=== PATIENT | male | born 1960 | race Caucasian/White ===

== ENCOUNTER 2022-04-22 14:09 | Outpatient (CLI) | payer OTHER | END 2022-04-22 14:10 | disposition home or self-care (01) | LOC: BICCT 14:09 | DX: Z12.2 Encounter for screening for malignant neoplasm of respiratory organs (principal); Z87.891 Personal history of nicotine dependence | CPT/HCPCS: 71271 ==

== ENCOUNTER 2022-09-13 02:06 | Inpatient (IN) | payer OTHER ==
[2022-09-13] MEDS ORDERED: CEFAZOLIN 2 GM VIAL ONE ×2 (02:14→11:25)
[2022-09-13] MEDS ORDERED: Ondansetron PF 4 MG/2 ML Vial ONE ×3 (02:33→12:19)
[2022-09-13 02:43] LABS: #Basophils 0.1 thou/uL (0.0-0.2); #Eosinphils 0.2 thou/uL (0.0-0.7); #Lymphocytes 3.5 thou/uL (1.20-3.40); #Monocytes 1.3 thou/uL (0.11-0.59); #Neutrophils 11.3 thou/uL (1.40-6.50); %Basophils 0.7 % (0.0-1.0); %Eosinophils 1.4 % (0.0-10.0); %Lymphocytes 21.5 % (21.0-51.0); %Monocytes 7.9 % (0.0-10.0); %Neutrophils 68.4 % (42.0-75.0); Hemoglobin 15.8 g/dL (14.0-18.0); Mean Corpuscular HGB CONC 34.9 g/dL (32.0-36.0); Mean Corpuscular Hemoglobin 32.9 pg (27.0-31.0); Mean Corpuscular Volume 94.3 fL (78.0-98.0); Platelet Count 236 thou/uL (130-400); RBC Distribution Width 11.1 % (11.5-14.5); Red Blood Cell (RBC) Count 4.82 mill/uL (4.70-6.10); White Blood Cell (WBC) Count 16.5 thou/uL (4.8-10.8)
[2022-09-13 03:04] LABS: ALT (SGPT) 23 U/L (8-55); AST (SGOT) 24 U/L (5-34); Albumin 4.4 g/dL (3.5-5.0); Alkaline Phosphatase 83 U/L (40-110); Anion Gap 22 mmol/L (10-20); BUN (Urea Nitrogen) 11 mg/dL (8.4-25.7); Bilirubin, Total 1.6 mg/dL (0.2-1.2); Calc. Creatinine Clearance 0 mL/min (70-130); Calcium 8.8 mg/dL (7.8-10.44); Carbon Dioxide 16 mmol/L (22-29); Chloride 103 mmol/L (98-107); Estimated GFR 87; Globulin 2.4 g/dL (2.4-3.5); Glucose 241 mg/dL (70-105); Potassium 3.3 mmol/L (3.5-5.1); Protein, Total 6.8 g/dL (6.0-8.3); Sodium 138 mmol/L (136-145)
[2022-09-13 04:16] LABS: Acetaminophen Less than 10.0 mcg/mL (10.0-30.0); Alcohol 116 mg/dL (Less than 10); Salicylate Less than 8.0 mg/dL (15.0-30.0)
[2022-09-13] MEDS ORDERED: Ondansetron PF 4 MG/2 ML Vial IVP PRN (06:00)
[2022-09-13] MEDS ORDERED: Ondansetron ODT 4 MG TAB SL PRN (06:00)
[2022-09-13] MEDS ORDERED: Acetaminophen 325 MG TAB PO PRN (06:00)
[2022-09-13] MEDS ORDERED: Dextrose 50% Abboject 50 ML SYRINGE SLOW IVP PRN (06:24)
[2022-09-13] MEDS ORDERED: Dextrose 5% in Water 1,000 ML IV PRN (06:24)
[2022-09-13] MEDS ORDERED: Morphine 2 MG/ML VIAL SLOW IVP SCH (06:30)
[2022-09-13 06:54] VITALS: BMI 30.6
[2022-09-13] MEDS ORDERED: TETANUS, DIPHTHERIA TOX,ADULT (TDVAX) 0.5 ML VIAL IM ONE (08:00)
[2022-09-13] MEDS: Famotidine/PF 20 mg/2ml Vial SLOW IVP SCH ×2 (08:39→21:09)
[2022-09-13] MEDS ORDERED: CEFAZOLIN 2 GM in Sodium Chloride 0.9% 100 ML IVPB SCH (10:00)
[2022-09-13] MEDS ORDERED: CEFAZOLIN 1 GM in Sodium Chloride 0.9% 100 ML IVPB SCH (10:00)
[2022-09-13 10:57] LABS: PTT 28.8 sec (22.9-36.1); Prothrombin Time 13.4 sec (12.0-14.7)
[2022-09-13] MEDS ORDERED: EPINEPHrine 1 MG/ML AMP ONE ×2 (11:18→13:11)
[2022-09-13] MEDS ORDERED: Neomycin-Polymyxin 1 ML AMP ONE (11:18)
[2022-09-13] MEDS ORDERED: Bacitracin Zinc Ointment 30 gm TUBE ONE (11:18)
[2022-09-13] MEDS ORDERED: Chlorhexidine Gluconate 15 ML UDCUP SSP ONE (11:18)
[2022-09-13] MEDS ORDERED: Lidocaine 1% (PF) 30 ML VIAL ONE (11:19)
[2022-09-13] MEDS ORDERED: fentaNYL PF 100 MCG/2 ML SYRINGE ONE ×2 (11:22→12:25)
[2022-09-13] MEDS ORDERED: Iopamidol-370 76% 500 ML 1 ML ONE ×2 (11:24→13:11)
[2022-09-13] MEDS ORDERED: Sodium Chloride 0.9% 100 ML ONE (11:25)
[2022-09-13] MEDS ORDERED: Dexamethasone 20 MG/5 ML VIAL ONE (12:19)
[2022-09-13] MEDS ORDERED: PHENYLEPHRINE-NS 100 MCG/ML 10 ML SYRINGE ONE (12:19)
[2022-09-13] MEDS ORDERED: PROPOFOL 200 MG/20 ML VIAL ONE (12:19)
[2022-09-13] MEDS ORDERED: Rocuronium Bromide 10 MG/ML (10ML VIAL) ONE (12:19)
[2022-09-13] MEDS ORDERED: ePHEDrine 50 MG/ML VIAL ONE (12:19)
[2022-09-13 12:52] LABS: SARS-CoV-2 NAA Rapid Test Not Detected (NotDetected)
[2022-09-13] MEDS ORDERED: MINERAL OIL/WHITE PETROLATUM 3.5 GM TUBE ONE (12:57)
[2022-09-13] MEDS ORDERED: CEFAZOLIN 1 GM VIAL SLOW IVP SCH (14:00)
[2022-09-13] MEDS ORDERED: HYDROmorphone 2 MG/ML VIAL SLOW IVP PRN (15:46)
[2022-09-13] MEDS ORDERED: Meperidine HCl/PF 25 MG/ML VIAL SLOW IVP PRN (15:46)
[2022-09-13] MEDS ORDERED: Ondansetron HCl/PF 4 MG/2 ML Vial IVP PRN (15:46)
[2022-09-13] MEDS ORDERED: Promethazine HCl 25 MG/ML VIAL IVPB PRN (15:46)
[2022-09-13] MEDS ORDERED: Promethazine HCl 25 MG/ML VIAL IM PRN (15:46)
[2022-09-13] MEDS ORDERED: Fentanyl 100 MCG/2 ML VIAL ONE (16:01)
[2022-09-13] MEDS ORDERED: Labetalol HCl 100 MG/20 ML VIAL ONE (16:23)
[2022-09-13] MEDS ORDERED: Sodium Chloride 0.9% 1,000 ML IV SCH (16:45)
[2022-09-13] MEDS ORDERED: Sodium Bicarb 50 MEQ/50 ML VIAL IVP SCH (17:00)
[2022-09-13] MEDS: Thiamine 100 MG TAB PO SCH (18:47)
[2022-09-13] MEDS: Folic Acid 1 MG TAB PO SCH (18:47)
[2022-09-13] MEDS: Oxazepam 10 MG CAP PO SCH ×2 (18:47→21:09)
[2022-09-13] MEDS ORDERED: traMADol HCl 50 MG TAB PO PRN (20:03)
[2022-09-13] MEDS ORDERED: Acetaminophen 500 MG TAB PO SCH (20:30)
[2022-09-13] MEDS: Bacitracin 1 PK TOP SCH (21:08)
[2022-09-13] MEDS: Chlorhexidine Gluconate 15 ML UDCUP SSP SCH (21:09)
[2022-09-13] MEDS: hydrALAZINE 20 MG/ML VIAL SLOW IVP PRN (21:09)
[2022-09-13] MEDS: Atorvastatin Calcium 40 MG TAB PO SCH (21:09)
[2022-09-13] MEDS: CEFAZOLIN 2 GM in Sodium Chloride 0.9% 100 ML IVPB SCH (21:11)
[2022-09-13] MEDS: Ondansetron PF 4 MG/2 ML Vial IVP PRN (21:52)
[2022-09-13] MEDS: Scopolamine 1.5 mg/72 hour Patch TD SCH (21:52)
[2022-09-13] MEDS: HumaLOG 300 UNITS/3 ML VIAL SC PRN (21:52)
[2022-09-13] MEDS: Acetaminophen W/ Codeine 5 ML UDCUP PO SCH (21:53)
[2022-09-13] MEDS: Morphine 2 MG/ML VIAL SLOW IVP PRN (22:45)
[2022-09-13] MEDS ORDERED: traMADol HCl 50 MG TAB PO SCH (23:59)
[2022-09-14] MEDS: HumaLOG 300 UNITS/3 ML VIAL SC PRN ×4 (01:27→19:46)
[2022-09-14] MEDS: Acetaminophen W/ Codeine 5 ML UDCUP PO SCH ×2 (01:30→05:34)
[2022-09-14] MEDS: Labetalol HCl 100 MG/20 ML VIAL SLOW IVP PRN ×2 (03:48→21:31)
[2022-09-14] MEDS: Morphine 2 MG/ML VIAL SLOW IVP PRN (03:49)
[2022-09-14] MEDS: CEFAZOLIN 2 GM in Sodium Chloride 0.9% 100 ML IVPB SCH (03:49)
[2022-09-14] MEDS: Oxazepam 10 MG CAP PO SCH ×3 (05:35→21:12)
[2022-09-14 05:57] LABS: Bacteria/HPF None Seen HPF (None Seen); Bilirubin Negative (Negative); Blood, Urine Negative (Negative); Clarity Clear (Clear); Glucose, Urine (Dipstick) Greater than 1000 mg/dL (Negative); Ketone, Urine 40 mg/dL (Negative); Leukocyte Negative Leu/uL (Negative); Nitrite Negative (Negative); Protein, Urine (Dipstick) 10 mg/dL (Neg-Trace); RBC/HPF None Seen HPF (0-3); Specific Gravity, Urine 1.036 (1.002-1.036); Squamous Epithelial 0-3 HPF (0-3); Urobilinogen Normal mg/dL (Less than 2); WBC/HPF None Seen HPF (0-3)
[2022-09-14 06:13] LABS: Urine Culture Reflex No No
[2022-09-14 06:51] LABS: Anion Gap 15 mmol/L (10-20); BUN (Urea Nitrogen) 15 mg/dL (8.4-25.7); Calc. Creatinine Clearance 107 mL/min (70-130); Calcium 8.6 mg/dL (7.8-10.44); Carbon Dioxide 24 mmol/L (22-29); Chloride 105 mmol/L (98-107); Estimated GFR 98; Glucose 203 mg/dL (70-105); Potassium 3.7 mmol/L (3.5-5.1); Sodium 140 mmol/L (136-145)
[2022-09-14 07:01] LABS: Band 23 % (5-11); Hemoglobin 13.6 g/dL (14.0-18.0); Lymphocytes 2 % (21-51); MDiff Complete? YES; Mean Corpuscular HGB CONC 35.7 g/dL (32.0-36.0); Mean Corpuscular Volume 95.1 fL (78.0-98.0); Mean Platelet Volume 7.9 fL (7.4-10.4); Monocytes 9 % (0-10); Neutrophil 65 % (42-75); Phosphorus 1.9 mg/dL (2.3-4.7); Platelet Count 204 thou/uL (130-400); Platelet Morphology Comment Appears Adequate; RBC Distribution Width 11.3 % (11.5-14.5); RBC Morphology Normal; Reactive Lymphocytes 1 % (0-10); Red Blood Cell (RBC) Count 3.99 mill/uL (4.70-6.10); White Blood Cell (WBC) Count 20.8 thou/uL (4.8-10.8)
[2022-09-14] MEDS ORDERED: Potassium Phosphate 30 MMOL in Sodium Chloride 0.9% 250 ML 250 ML IVPB SCH (08:00)
[2022-09-14] MEDS: Morphine 4 MG/ML VIAL SLOW IVP PRN ×3 (10:28→18:31)
[2022-09-14] MEDS: Thiamine 100 MG TAB PO SCH (10:29)
[2022-09-14] MEDS: Folic Acid 1 MG TAB PO SCH (10:29)
[2022-09-14] MEDS: Bacitracin 1 PK TOP SCH ×3 (10:30→21:12)
[2022-09-14] MEDS: Chlorhexidine Gluconate 15 ML UDCUP SSP SCH ×2 (10:30→21:12)
[2022-09-14] MEDS: Famotidine/PF 20 mg/2ml Vial SLOW IVP SCH ×2 (10:30→21:12)
[2022-09-14] MEDS ORDERED: traMADol HCl 50 MG TAB PO PRN (12:24)
[2022-09-14] MEDS: Cyclobenzaprine 10 MG TAB PO PRN (12:32)
[2022-09-14] MEDS: Acetaminophen 325 MG/10.15 ML UDCUP PO SCH ×2 (15:03→21:13)
[2022-09-14] MEDS ORDERED: traMADol HCl 50 MG TAB PO SCH (18:00)
[2022-09-14] MEDS: Gabapentin 300 MG CAP PO SCH (21:13)
[2022-09-14] MEDS: Atorvastatin Calcium 40 MG TAB PO SCH (21:13)
[2022-09-15] MEDS: Labetalol HCl 100 MG/20 ML VIAL SLOW IVP PRN ×2 (01:54→21:19)
[2022-09-15] MEDS: Acetaminophen 325 MG/10.15 ML UDCUP PO SCH ×4 (01:54→20:52)
[2022-09-15] MEDS: Pentazocine HCl/Naloxone HCl 50/0.5 MG TAB PO PRN ×4 (02:31→23:17)
[2022-09-15] MEDS: Oxazepam 10 MG CAP PO SCH ×3 (05:38→20:51)
[2022-09-15] MEDS: HumaLOG 300 UNITS/3 ML VIAL SC PRN ×4 (05:39→21:32)
[2022-09-15 06:01] LABS: #Lymphocytes 2.1 thou/uL (1.20-3.40); #Monocytes 2.1 thou/uL (0.11-0.59); #Neutrophils 11.4 thou/uL (1.40-6.50); %Basophils 0.3 % (0.0-1.0); %Eosinophils 0.2 % (0.0-10.0); %Lymphocytes 13.3 % (21.0-51.0); %Monocytes 13.3 % (0.0-10.0); %Neutrophils 72.9 % (42.0-75.0); Hemoglobin 12.2 g/dL (14.0-18.0); Mean Corpuscular HGB CONC 33.7 g/dL (32.0-36.0); Mean Corpuscular Hemoglobin 32.2 pg (27.0-31.0); Mean Corpuscular Volume 95.6 fL (78.0-98.0); Platelet Count 184 thou/uL (130-400); RBC Distribution Width 11.3 % (11.5-14.5); Red Blood Cell (RBC) Count 3.79 mill/uL (4.70-6.10); White Blood Cell (WBC) Count 15.6 thou/uL (4.8-10.8)
[2022-09-15 06:26] LABS: Anion Gap 13 mmol/L (10-20); BUN (Urea Nitrogen) 13 mg/dL (8.4-25.7); Calc. Creatinine Clearance 129 mL/min (70-130); Calcium 8.4 mg/dL (7.8-10.44); Carbon Dioxide 26 mmol/L (22-29); Chloride 102 mmol/L (98-107); Estimated GFR 104; Glucose 207 mg/dL (70-105); Magnesium 2.1 mg/dL (1.6-2.6); Phosphorus 2.4 mg/dL (2.3-4.7); Potassium 4.2 mmol/L (3.5-5.1); Sodium 137 mmol/L (136-145)
[2022-09-15] MEDS: Gabapentin 300 MG CAP PO SCH ×3 (08:41→20:51)
[2022-09-15] MEDS: Thiamine 100 MG TAB PO SCH (08:41)
[2022-09-15] MEDS: Famotidine/PF 20 mg/2ml Vial SLOW IVP SCH ×2 (08:41→20:52)
[2022-09-15] MEDS: Bacitracin 1 PK TOP SCH ×3 (08:41→20:54)
[2022-09-15] MEDS: Folic Acid 1 MG TAB PO SCH (08:42)
[2022-09-15] MEDS: Chlorhexidine Gluconate 15 ML UDCUP SSP SCH ×2 (10:07→20:52)
[2022-09-15] MEDS: Atorvastatin Calcium 40 MG TAB PO SCH (20:52)
[2022-09-15] MEDS: Cyclobenzaprine 10 MG TAB PO PRN (22:04)
[2022-09-16] MEDS: Labetalol HCl 100 MG/20 ML VIAL SLOW IVP PRN ×4 (00:06→17:41)
[2022-09-16] MEDS: Acetaminophen 325 MG/10.15 ML UDCUP PO SCH ×4 (03:37→21:09)
[2022-09-16 05:21] LABS: #Eosinphils 0.2 thou/uL (0.0-0.7); #Lymphocytes 2.2 thou/uL (1.20-3.40); #Monocytes 1.5 thou/uL (0.11-0.59); #Neutrophils 7.4 thou/uL (1.40-6.50); %Basophils 0.4 % (0.0-1.0); %Eosinophils 1.5 % (0.0-10.0); %Lymphocytes 19.7 % (21.0-51.0); %Monocytes 13.1 % (0.0-10.0); %Neutrophils 65.3 % (42.0-75.0); Hemoglobin 12.6 g/dL (14.0-18.0); Mean Corpuscular HGB CONC 33.2 g/dL (32.0-36.0); Mean Corpuscular Hemoglobin 32.2 pg (27.0-31.0); Mean Corpuscular Volume 97.2 fL (78.0-98.0); Mean Platelet Volume 7.7 fL (7.4-10.4); Platelet Count 208 thou/uL (130-400); RBC Distribution Width 11.1 % (11.5-14.5); Red Blood Cell (RBC) Count 3.92 mill/uL (4.70-6.10); White Blood Cell (WBC) Count 11.3 thou/uL (4.8-10.8)
[2022-09-16] MEDS: Oxazepam 10 MG CAP PO SCH ×3 (05:39→21:10)
[2022-09-16] MEDS: Pentazocine HCl/Naloxone HCl 50/0.5 MG TAB PO PRN (06:43)
[2022-09-16] MEDS: HumaLOG 300 UNITS/3 ML VIAL SC PRN ×3 (06:44→17:40)
[2022-09-16] MEDS: Gabapentin 300 MG CAP PO SCH ×3 (09:06→20:51)
[2022-09-16] MEDS: Folic Acid 1 MG TAB PO SCH (09:06)
[2022-09-16] MEDS: Thiamine 100 MG TAB PO SCH (09:07)
[2022-09-16] MEDS: Chlorhexidine Gluconate 15 ML UDCUP SSP SCH ×2 (09:08→20:50)
[2022-09-16] MEDS: Bacitracin 1 PK TOP SCH ×3 (09:08→20:50)
[2022-09-16] MEDS: traMADol HCl 50 MG TAB PO SCH ×3 (11:48→23:58)
[2022-09-16] MEDS: Scopolamine 1.5 mg/72 hour Patch TD SCH (20:50)
[2022-09-16] MEDS: Atorvastatin Calcium 40 MG TAB PO SCH (20:51)
[2022-09-16] MEDS: Cyclobenzaprine 10 MG TAB PO PRN (21:10)
[2022-09-17] MEDS: Acetaminophen 325 MG/10.15 ML UDCUP PO SCH ×4 (03:26→20:27)
[2022-09-17] MEDS: hydrALAZINE 20 MG/ML VIAL SLOW IVP PRN ×3 (03:36→16:17)
[2022-09-17] MEDS: Labetalol HCl 100 MG/20 ML VIAL SLOW IVP PRN (04:10)
[2022-09-17] MEDS: traMADol HCl 50 MG TAB PO SCH ×4 (05:17→23:37)
[2022-09-17] MEDS: Oxazepam 10 MG CAP PO SCH ×4 (05:18→22:27)
[2022-09-17] MEDS: Cyclobenzaprine 10 MG TAB PO PRN ×2 (05:20→15:19)
[2022-09-17] MEDS: HumaLOG 300 UNITS/3 ML VIAL SC PRN ×4 (05:27→22:22)
[2022-09-17] MEDS: Morphine 4 MG/ML VIAL SLOW IVP PRN (06:41)
[2022-09-17] MEDS: Bacitracin 1 PK TOP SCH ×3 (08:27→20:27)
[2022-09-17] MEDS: Folic Acid 1 MG TAB PO SCH (08:27)
[2022-09-17] MEDS: Thiamine 100 MG TAB PO SCH (08:27)
[2022-09-17] MEDS: Gabapentin 300 MG CAP PO SCH ×3 (08:27→20:27)
[2022-09-17] MEDS: Chlorhexidine Gluconate 15 ML UDCUP SSP SCH ×2 (08:28→20:27)
[2022-09-17] MEDS: Amlodipine 10 MG TAB PO SCH (09:12)
[2022-09-17] MEDS: Ondansetron PF 4 MG/2 ML Vial IVP PRN (20:02)
[2022-09-17] MEDS: Atorvastatin Calcium 40 MG TAB PO SCH (20:27)
[2022-09-17 20:45] LABS: Anion Gap 15 mmol/L (10-20); BUN (Urea Nitrogen) 9 mg/dL (8.4-25.7); Calc. Creatinine Clearance 137 mL/min (70-130); Calcium 9.2 mg/dL (7.8-10.44); Carbon Dioxide 24 mmol/L (22-29); Chloride 100 mmol/L (98-107); Estimated GFR 105; Glucose 180 mg/dL (70-105); Magnesium 1.9 mg/dL (1.6-2.6); Phosphorus 2.8 mg/dL (2.3-4.7); Potassium 3.3 mmol/L (3.5-5.1); Sodium 136 mmol/L (136-145)
[2022-09-17 20:48] LABS: Troponin I 0.025 ng/mL (< 0.028)
[2022-09-17] MEDS ORDERED: Magnesium 2 GM/50 ML(in water) 2 GM in Premix Bag 1 BAG IVPB SCH (21:00)
[2022-09-17] MEDS: Potassium Chloride 20 MEQ TAB PO SCH ×2 (21:53→23:02)
[2022-09-17] MEDS: Carvedilol 6.25 MG TAB PO SCH ×2 (21:54→22:27)
[2022-09-17] MEDS: Insulin Glargine 30 UNITS/0.3 ML VIAL SC SCH (21:58)
[2022-09-17] MEDS ORDERED: Calcium Carbonate 500 MG ChewTAB PO PRN (22:13)
[2022-09-17 23:13] LABS: #Basophils 0.1 thou/uL (0.0-0.2); #Eosinphils 0.3 thou/uL (0.0-0.7); #Lymphocytes 1.4 thou/uL (1.20-3.40); #Monocytes 1.6 thou/uL (0.11-0.59); %Basophils 0.6 % (0.0-1.0); %Eosinophils 1.9 % (0.0-10.0); %Lymphocytes 10.5 % (21.0-51.0); %Monocytes 12.3 % (0.0-10.0); %Neutrophils 74.7 % (42.0-75.0); Hemoglobin 13.9 g/dL (14.0-18.0); Mean Corpuscular HGB CONC 34.1 g/dL (32.0-36.0); Mean Corpuscular Hemoglobin 32.8 pg (27.0-31.0); Mean Corpuscular Volume 96.1 fL (78.0-98.0); Platelet Count 287 thou/uL (130-400); RBC Distribution Width 11.4 % (11.5-14.5); Red Blood Cell (RBC) Count 4.23 mill/uL (4.70-6.10); White Blood Cell (WBC) Count 13.4 thou/uL (4.8-10.8)
[2022-09-17] MEDS ORDERED: Potassium Chloride 20 MEQ TAB PO SCH (23:15)
[2022-09-18] MEDS: Potassium Chloride 20 MEQ TAB PO SCH (01:54)
[2022-09-18] MEDS: Acetaminophen 325 MG/10.15 ML UDCUP PO SCH ×4 (02:51→21:32)
[2022-09-18 05:35] LABS: Anion Gap 13 mmol/L (10-20); BUN (Urea Nitrogen) 13 mg/dL (8.4-25.7); Calc. Creatinine Clearance 124 mL/min (70-130); Calcium 9.3 mg/dL (7.8-10.44); Carbon Dioxide 26 mmol/L (22-29); Chloride 100 mmol/L (98-107); Estimated GFR 102; Glucose 198 mg/dL (70-105); Magnesium 2.1 mg/dL (1.6-2.6); Phosphorus 4.5 mg/dL (2.3-4.7); Sodium 135 mmol/L (136-145)
[2022-09-18 05:52] LABS: CKMB 1.9 ng/mL (0-6.6)
[2022-09-18] MEDS: traMADol HCl 50 MG TAB PO SCH ×4 (06:21→23:28)
[2022-09-18] MEDS: HumaLOG 300 UNITS/3 ML VIAL SC PRN ×3 (06:21→17:31)
[2022-09-18] MEDS: Oxazepam 10 MG CAP PO SCH ×3 (06:21→21:32)
[2022-09-18] MEDS: Gabapentin 300 MG CAP PO SCH ×3 (08:56→21:32)
[2022-09-18] MEDS: Chlorhexidine Gluconate 15 ML UDCUP SSP SCH ×2 (08:56→21:33)
[2022-09-18] MEDS: Carvedilol 6.25 MG TAB PO SCH ×2 (08:57→17:31)
[2022-09-18] MEDS: Thiamine 100 MG TAB PO SCH (08:57)
[2022-09-18] MEDS: Bacitracin 1 PK TOP SCH ×3 (08:57→21:31)
[2022-09-18] MEDS: Amlodipine 10 MG TAB PO SCH (08:57)
[2022-09-18] MEDS: Senokot S 8.6-50 MG TAB PO SCH ×2 (08:57→21:31)
[2022-09-18] MEDS: Folic Acid 1 MG TAB PO SCH (08:57)
[2022-09-18] MEDS: Atorvastatin Calcium 40 MG TAB PO SCH (21:31)
[2022-09-18] MEDS: Insulin Glargine 30 UNITS/0.3 ML VIAL SC SCH (21:32)
[2022-09-19] MEDS: Acetaminophen 325 MG/10.15 ML UDCUP PO SCH ×4 (02:52→21:29)
[2022-09-19 04:24] LABS: #Eosinphils 0.4 thou/uL (0.0-0.7); #Monocytes 1.7 thou/uL (0.11-0.59); #Neutrophils 10.1 thou/uL (1.40-6.50); %Basophils 0.3 % (0.0-1.0); %Eosinophils 3.1 % (0.0-10.0); %Lymphocytes 14.3 % (21.0-51.0); %Monocytes 11.7 % (0.0-10.0); %Neutrophils 70.7 % (42.0-75.0); Hemoglobin 12.6 g/dL (14.0-18.0); Mean Corpuscular HGB CONC 33.9 g/dL (32.0-36.0); Mean Corpuscular Hemoglobin 32.3 pg (27.0-31.0); Mean Corpuscular Volume 95.4 fL (78.0-98.0); Mean Platelet Volume 7.3 fL (7.4-10.4); Platelet Count 279 thou/uL (130-400); RBC Distribution Width 11.7 % (11.5-14.5); White Blood Cell (WBC) Count 14.2 thou/uL (4.8-10.8)
[2022-09-19 06:14] LABS: Anion Gap 10 mmol/L (10-20); BUN (Urea Nitrogen) 11 mg/dL (8.4-25.7); Calc. Creatinine Clearance 131 mL/min (70-130); Carbon Dioxide 29 mmol/L (22-29); Chloride 100 mmol/L (98-107); Estimated GFR 104; Glucose 216 mg/dL (70-105); Magnesium 1.7 mg/dL (1.6-2.6); Phosphorus 2.6 mg/dL (2.3-4.7); Potassium 4.2 mmol/L (3.5-5.1); Sodium 135 mmol/L (136-145)
[2022-09-19] MEDS: Oxazepam 10 MG CAP PO SCH ×3 (06:18→21:30)
[2022-09-19] MEDS: traMADol HCl 50 MG TAB PO SCH ×3 (06:19→17:44)
[2022-09-19] MEDS: HumaLOG 300 UNITS/3 ML VIAL SC PRN (06:19)
[2022-09-19] MEDS: Gabapentin 300 MG CAP PO SCH ×3 (09:45→21:29)
[2022-09-19] MEDS: Folic Acid 1 MG TAB PO SCH (09:46)
[2022-09-19] MEDS: Senokot S 8.6-50 MG TAB PO SCH ×2 (09:46→22:32)
[2022-09-19] MEDS: Thiamine 100 MG TAB PO SCH (09:46)
[2022-09-19] MEDS: Carvedilol 6.25 MG TAB PO SCH ×2 (09:46→17:44)
[2022-09-19] MEDS: Multivitamin W/ Minerals 1 TAB PO SCH (09:46)
[2022-09-19] MEDS: Bacitracin 1 PK TOP SCH ×3 (09:46→21:27)
[2022-09-19] MEDS: Amlodipine 10 MG TAB PO SCH (09:46)
[2022-09-19] MEDS: Chlorhexidine Gluconate 15 ML UDCUP SSP SCH ×2 (09:47→21:29)
[2022-09-19] MEDS: Scopolamine 1.5 mg/72 hour Patch TD SCH (21:27)
[2022-09-19] MEDS: Atorvastatin Calcium 40 MG TAB PO SCH (21:27)
[2022-09-19] MEDS: Insulin Glargine 30 UNITS/0.3 ML VIAL SC SCH (21:29)
[2022-09-19] MEDS: hydrALAZINE 20 MG/ML VIAL SLOW IVP PRN (21:40)
[2022-09-20] MEDS: traMADol HCl 50 MG TAB PO SCH ×5 (00:36→23:49)
[2022-09-20] MEDS: Acetaminophen 325 MG/10.15 ML UDCUP PO SCH ×4 (02:36→20:37)
[2022-09-20] MEDS: Oxazepam 10 MG CAP PO SCH ×3 (06:19→20:38)
[2022-09-20] MEDS: HumaLOG 300 UNITS/3 ML VIAL SC PRN ×3 (06:19→17:24)
[2022-09-20] MEDS: Senokot S 8.6-50 MG TAB PO SCH ×2 (08:38→20:38)
[2022-09-20] MEDS: Thiamine 100 MG TAB PO SCH (08:38)
[2022-09-20] MEDS: Folic Acid 1 MG TAB PO SCH (08:38)
[2022-09-20] MEDS: Gabapentin 300 MG CAP PO SCH ×3 (08:38→20:38)
[2022-09-20] MEDS: Carvedilol 6.25 MG TAB PO SCH ×2 (08:38→17:24)
[2022-09-20] MEDS: Amlodipine 10 MG TAB PO SCH (08:38)
[2022-09-20] MEDS: Multivitamin W/ Minerals 1 TAB PO SCH (08:39)
[2022-09-20] MEDS: Bacitracin 1 PK TOP SCH ×3 (08:41→20:37)
[2022-09-20] MEDS: Chlorhexidine Gluconate 15 ML UDCUP SSP SCH ×2 (08:41→20:38)
[2022-09-20] MEDS: Empagliflozin 25 MG TAB PO SCH (09:25)
[2022-09-20] MEDS ORDERED: NPH, Human Insulin Isophane 300 UNIT/3 ML VIAL SC SCH (11:45)
[2022-09-20] MEDS: Atorvastatin Calcium 40 MG TAB PO SCH (20:37)
[2022-09-20] MEDS: traMADol HCl 50 MG TAB PO PRN (20:38)
[2022-09-20] MEDS: Insulin Glargine 30 UNITS/0.3 ML VIAL SC SCH (20:41)
[2022-09-21] MEDS: Acetaminophen 325 MG/10.15 ML UDCUP PO SCH ×3 (03:20→17:46)
[2022-09-21] MEDS: Oxazepam 10 MG CAP PO SCH ×3 (05:21→15:16)
[2022-09-21] MEDS: traMADol HCl 50 MG TAB PO SCH ×4 (05:21→17:16)
[2022-09-21 05:40] LABS: Bacteria/HPF None Seen HPF (None Seen); Bilirubin Negative (Negative); Blood, Urine Negative (Negative); Clarity Clear (Clear); Glucose, Urine (Dipstick) 50 mg/dL (Negative); Ketone, Urine Negative (Negative); Leukocyte Negative Leu/uL (Negative); Nitrite Negative (Negative); Protein, Urine (Dipstick) Negative (Neg-Trace); RBC/HPF 0-3 HPF (0-3); Squamous Epithelial None Seen HPF (0-3); Urobilinogen Normal mg/dL (Less than 2); WBC/HPF 0-3 HPF (0-3); pH, Urine 6.5 (5.0-9.0)
[2022-09-21 05:41] LABS: Urine Culture Reflex No No
[2022-09-21] MEDS: HumaLOG 300 UNITS/3 ML VIAL SC PRN ×2 (05:52→11:24)
[2022-09-21] MEDS: Cyclobenzaprine 10 MG TAB PO PRN (05:55)
[2022-09-21] MEDS: Carvedilol 6.25 MG TAB PO SCH ×2 (09:34→17:16)
[2022-09-21] MEDS: Chlorhexidine Gluconate 15 ML UDCUP SSP SCH ×2 (09:35→20:59)
[2022-09-21] MEDS: Senokot S 8.6-50 MG TAB PO SCH ×2 (09:35→21:01)
[2022-09-21] MEDS: Folic Acid 1 MG TAB PO SCH (09:35)
[2022-09-21] MEDS: Bacitracin 1 PK TOP SCH ×3 (09:35→21:00)
[2022-09-21] MEDS: Empagliflozin 25 MG TAB PO SCH (09:35)
[2022-09-21] MEDS: Multivitamin W/ Minerals 1 TAB PO SCH (09:35)
[2022-09-21] MEDS ORDERED: Meclizine HCl 12.5 MG TAB PO PRN (09:35)
[2022-09-21] MEDS: Gabapentin 300 MG CAP PO SCH ×3 (09:35→21:00)
[2022-09-21] MEDS: Insulin Glargine 30 UNITS/0.3 ML VIAL SC SCH ×2 (09:36→21:02)
[2022-09-21] MEDS: Thiamine 100 MG TAB PO SCH (09:36)
[2022-09-21] MEDS: Atorvastatin Calcium 40 MG TAB PO SCH (21:01)
[2022-09-21] MEDS: traMADol HCl 50 MG TAB PO PRN (21:09)
[2022-09-22] MEDS: Oxazepam 10 MG CAP PO SCH ×3 (00:07→17:15)
[2022-09-22] MEDS: Acetaminophen 325 MG/10.15 ML UDCUP PO SCH ×4 (00:07→17:15)
[2022-09-22] MEDS: traMADol HCl 50 MG TAB PO SCH ×4 (00:11→17:15)
[2022-09-22 05:39] LABS: Anion Gap 15 mmol/L (10-20); BUN (Urea Nitrogen) 10 mg/dL (8.4-25.7); Calc. Creatinine Clearance 124 mL/min (70-130); Calcium 9.2 mg/dL (7.8-10.44); Carbon Dioxide 26 mmol/L (22-29); Chloride 101 mmol/L (98-107); Estimated GFR 102; Glucose 126 mg/dL (70-105); Phosphorus 4.8 mg/dL (2.3-4.7); Potassium 3.9 mmol/L (3.5-5.1); Sodium 138 mmol/L (136-145)
[2022-09-22 05:45] LABS: Band 5 % (5-11); Eosinophils 3 % (0-10); Hemoglobin 13.3 g/dL (14.0-18.0); Lymphocytes 32 % (21-51); MDiff Complete? YES; Mean Corpuscular HGB CONC 33.7 g/dL (32.0-36.0); Mean Corpuscular Hemoglobin 32.3 pg (27.0-31.0); Mean Corpuscular Volume 95.7 fL (78.0-98.0); Mean Platelet Volume 6.9 fL (7.4-10.4); Monocytes 15 % (0-10); Neutrophil 45 % (42-75); Platelet Count 320 thou/uL (130-400); RBC Distribution Width 11.7 % (11.5-14.5); Red Blood Cell (RBC) Count 4.11 mill/uL (4.70-6.10); White Blood Cell (WBC) Count 11.7 thou/uL (4.8-10.8)
[2022-09-22] MEDS: Carvedilol 6.25 MG TAB PO SCH ×2 (09:39→17:15)
[2022-09-22] MEDS: Multivitamin W/ Minerals 1 TAB PO SCH (09:40)
[2022-09-22] MEDS: Empagliflozin 25 MG TAB PO SCH (09:40)
[2022-09-22] MEDS: Bacitracin 1 PK TOP SCH ×3 (09:40→21:28)
[2022-09-22] MEDS: Senokot S 8.6-50 MG TAB PO SCH ×2 (09:40→21:29)
[2022-09-22] MEDS: Folic Acid 1 MG TAB PO SCH (09:40)
[2022-09-22] MEDS: Chlorhexidine Gluconate 15 ML UDCUP SSP SCH ×2 (09:40→21:29)
[2022-09-22] MEDS: Insulin Glargine 30 UNITS/0.3 ML VIAL SC SCH ×2 (09:40→21:29)
[2022-09-22] MEDS: Gabapentin 300 MG CAP PO SCH ×3 (09:40→21:28)
[2022-09-22] MEDS: Thiamine 100 MG TAB PO SCH (09:40)
[2022-09-22] MEDS: HumaLOG 300 UNITS/3 ML VIAL SC PRN (17:15)
[2022-09-22] MEDS: Atorvastatin Calcium 40 MG TAB PO SCH (21:28)
[2022-09-23] MEDS: Scopolamine 1.5 mg/72 hour Patch TD SCH (01:08)
[2022-09-23] MEDS: Oxazepam 10 MG CAP PO SCH ×2 (01:08→05:52)
[2022-09-23] MEDS: traMADol HCl 50 MG TAB PO SCH ×5 (01:08→23:46)
[2022-09-23] MEDS: Acetaminophen 325 MG/10.15 ML UDCUP PO SCH ×5 (01:08→23:47)
[2022-09-23] MEDS: Insulin Glargine 30 UNITS/0.3 ML VIAL SC SCH ×2 (09:55→21:48)
[2022-09-23] MEDS: Empagliflozin 25 MG TAB PO SCH (09:55)
[2022-09-23] MEDS: Senokot S 8.6-50 MG TAB PO SCH ×2 (09:55→21:49)
[2022-09-23] MEDS: Carvedilol 6.25 MG TAB PO SCH ×2 (10:03→17:25)
[2022-09-23] MEDS: Multivitamin W/ Minerals 1 TAB PO SCH (10:04)
[2022-09-23] MEDS: Bacitracin 1 PK TOP SCH ×3 (10:04→21:48)
[2022-09-23] MEDS: Chlorhexidine Gluconate 15 ML UDCUP SSP SCH ×2 (10:04→21:48)
[2022-09-23] MEDS: Thiamine 100 MG TAB PO SCH (10:04)
[2022-09-23] MEDS: Gabapentin 300 MG CAP PO SCH ×3 (10:04→21:47)
[2022-09-23] MEDS: Folic Acid 1 MG TAB PO SCH (10:04)
[2022-09-23] MEDS ORDERED: fentaNYL PF 100 MCG/2 ML SYRINGE ONE ×2 (17:07→20:49)
[2022-09-23] MEDS ORDERED: SUGAMMADEX SODIUM 200 MG/2 ML VIAL ONE (17:07)
[2022-09-23] MEDS ORDERED: Hydrocortisone 1% Cream 30 GM TUBE ONE (17:10)
[2022-09-23] MEDS ORDERED: Chlorhexidine Gluconate 15 ML UDCUP SSP ONE (17:10)
[2022-09-23] MEDS ORDERED: EPINEPHrine 1 MG/ML AMP ONE (17:10)
[2022-09-23] MEDS ORDERED: Lidocaine 1% (PF) 30 ML VIAL ONE (17:10)
[2022-09-23] MEDS ORDERED: Clindamycin/D5W 900 mg/50 ml Premix Bag ONE (17:23)
[2022-09-23] MEDS ORDERED: PHENYLEPHRINE-NS 100 MCG/ML 10 ML SYRINGE ONE (17:36)
[2022-09-23] MEDS ORDERED: Rocuronium Bromide 10 MG/ML (10ML VIAL) ONE (17:36)
[2022-09-23] MEDS ORDERED: PROPOFOL 200 MG/20 ML VIAL ONE (17:36)
[2022-09-23] MEDS ORDERED: Ondansetron PF 4 MG/2 ML Vial ONE (17:36)
[2022-09-23] MEDS ORDERED: ePHEDrine 50 MG/ML VIAL ONE (17:36)
[2022-09-23] MEDS ORDERED: Rocuronium Bromide 50 MG/5 ML VIAL ONE (19:35)
[2022-09-23] MEDS ORDERED: Bacitracin Zinc Ointment 30 gm TUBE ONE (20:07)
[2022-09-23] MEDS ORDERED: Neomycin-Polymyxin 1 ML AMP ONE (20:07)
[2022-09-23] MEDS ORDERED: Ondansetron HCl/PF 4 MG/2 ML Vial IVP PRN (20:28)
[2022-09-23] MEDS ORDERED: Promethazine HCl 25 MG/ML VIAL IM PRN (20:28)
[2022-09-23] MEDS ORDERED: Promethazine HCl 25 MG/ML VIAL IVPB PRN (20:28)
[2022-09-23] MEDS ORDERED: hydrALAZINE 20 MG/ML VIAL ONE (20:55)
[2022-09-23] MEDS: Atorvastatin Calcium 40 MG TAB PO SCH (21:48)
[2022-09-24] MEDS: Acetaminophen 325 MG/10.15 ML UDCUP PO SCH ×3 (05:45→17:34)
[2022-09-24] MEDS: traMADol HCl 50 MG TAB PO SCH ×3 (05:46→17:34)
[2022-09-24] MEDS: HumaLOG 300 UNITS/3 ML VIAL SC PRN ×2 (05:47→11:01)
[2022-09-24] MEDS: Carvedilol 6.25 MG TAB PO SCH ×2 (10:40→16:35)
[2022-09-24] MEDS: Folic Acid 1 MG TAB PO SCH (10:41)
[2022-09-24] MEDS: Thiamine 100 MG TAB PO SCH (10:42)
[2022-09-24] MEDS: Insulin Glargine 30 UNITS/0.3 ML VIAL SC SCH (10:42)
[2022-09-24] MEDS: Multivitamin W/ Minerals 1 TAB PO SCH (10:42)
[2022-09-24] MEDS: Gabapentin 300 MG CAP PO SCH ×2 (10:43→15:11)
[2022-09-24] MEDS: Bacitracin 1 PK TOP SCH ×2 (10:45→15:12)
[2022-09-24] MEDS: Chlorhexidine Gluconate 15 ML UDCUP SSP SCH (11:01)
[2022-09-24] MEDS: Empagliflozin 25 MG TAB PO SCH (11:01)
[2022-09-24] MEDS: Senokot S 8.6-50 MG TAB PO SCH (11:27)
[2022-09-24 18:38] VITALS: BP 127/71; TEMP 97.3
[2022-09-24] MEDS ORDERED: Amoxicillin/Potassium Clav 875 MG TAB PO SCH (21:00)
== END 2022-09-24 19:28 | DRG 492 ==
LOC: ERS 02:06 → SURG B 04:37 → 2NO 09-17 22:48
PROVIDERS: ADMIT Surgery; ATTEND Surgery
PROC: 0QSH04Z Reposition Left Tibia with Internal Fixation Device, Open Approach (ICD-10-PCS; principal; 2022-09-13)
PROC: 0CQ1XZZ Repair Lower Lip, External Approach (ICD-10-PCS; 2022-09-23)
PROC: 0C910ZZ Drainage of Lower Lip, Open Approach (ICD-10-PCS; 2022-09-23)
PROC: 0NSR04Z Reposition Maxilla with Internal Fixation Device, Open Approach (ICD-10-PCS; 2022-09-23)
PROC: 0NSB04Z Reposition Nasal Bone with Internal Fixation Device, Open Approach (ICD-10-PCS; 2022-09-23)
PROC: 0HQ1XZZ Repair Face Skin, External Approach (ICD-10-PCS; 2022-09-23)
DX: S82.142A Displaced bicondylar fracture of left tibia, initial encounter for closed fracture (principal); S06.5X9A Traumatic subdural hemorrhage with loss of consciousness of unspecified duration, initial encounter; S02.412A LeFort II fracture, initial encounter for closed fracture; I50.22 Chronic systolic (congestive) heart failure; I47.1 Supraventricular tachycardia; I47.20 Ventricular tachycardia, unspecified; Z20.822 Contact with and (suspected) exposure to COVID-19; S01.511A Laceration without foreign body of lip, initial encounter; I25.10 Atherosclerotic heart disease of native coronary artery without angina pectoris; E11.65 Type 2 diabetes mellitus with hyperglycemia; R94.31 Abnormal electrocardiogram [ECG] [EKG]; E03.9 Hypothyroidism, unspecified; I11.0 Hypertensive heart disease with heart failure; Z95.5 Presence of coronary angioplasty implant and graft; I25.5 Ischemic cardiomyopathy; I48.91 Unspecified atrial fibrillation; I49.3 Ventricular premature depolarization; I49.1 Atrial premature depolarization; Z88.2 Allergy status to sulfonamides; V23.49XA Other motorcycle driver injured in collision with car, pick-up truck or van in traffic accident, initial encounter; Z95.1 Presence of aortocoronary bypass graft; F10.129 Alcohol abuse with intoxication, unspecified; Y90.5 Blood alcohol level of 100-119 mg/100 ml
CPT/HCPCS: 36415; 36416; 70450; 70486; 70498; 71045; 71260; 72125; 74177; 76000; 76377; 80048; 80053; 80307; 81001; 82553; 83735; 83880; 84100; 84443; 84484; 85025; 85610; 85730; 87040; 87811; 93005; 93010; 93306; 93970; 96365; 96375; 96376; C1713; C1776; G0390; J0171; J0360; J0690; J1100; J1815; J2001; J2270; J2405; J2704; J3010; J3475; J3490; J7050; Q9967; S0028; U0002